=== PATIENT | male | born 1945 | race Caucasian/White ===

== ENCOUNTER 2022-07-28 15:12 | Emergency (ER) | payer MEDICARE, OTHER ==
[~2022-07-28] VITALS: Ht 182.9 cm; Wt 79.8 kg
--- NOTE | 2022-07-28 15:15 | NUR ---
BIB [facility] FROM A CLINIC DUE TO ABNORMAL EKG, H/O AFIB, DENIES ANY CP OR SOB. PLACED IN BED, AAOX4, UNABLE TO HEAR CLEARLY, BREATHING EVEN AND UNLABORED SATURATING AT 97%RA.
--- NOTE | 2022-07-28 15:59 | NUR ---
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
[2022-07-28 16:33] LABS: CALCIUM, SERUM 10.3 mg/dL (8.5-10.1); CARBON DIOXIDE 28 mmol/L (21-32); CHLORIDE 107 mmol/L (98-107); CREATININE 1.4 mg/dL (0.6-1.3); GLUCOSE 98 mg/dL (74-106); POTASSIUM 5.4 mmol/L (3.5-5.1); SODIUM SERUM 141 mmol/L (136-145); UREA NITROGEN, BLOOD 26 mg/dL (7-18)
[2022-07-28 17:11] LABS: BASOPHILS % (AUTO) 0.6 % (0.0-2.0); EOSINOPHILS % (AUTO) 2.1 % (0.0-6.0); HEMATOCRIT 49 % (39-51); HEMOGLOBIN 15.6 g/dL (13.5-17.5); LYMPHOCYTES # (AUTO) 1.9 K/uL (0.8-4.8); LYMPHOCYTES % (AUTO) 27.8 % (20.0-44.0); MEAN CORPUSCULAR HGB CONC 32 g/dl (31.0-36.0); MEAN CORPUSCULAR VOLUME 95 fL (80-96); MONOCYTES # (AUTO) 0.6 K/uL (0.1-1.30); MONOCYTES % (AUTO) 8.5 % (2.0-12.0); NEUTROPHILS # (AUTO) 4.1 K/uL (1.8-8.9); PLATELET COUNT (AUTO) 127 K/uL (150-450); WHITE BLOOD COUNT (AUTO) 6.8 K/uL (4.3-11.0)
--- NOTE | 2022-07-28 19:15 | NUR ---
Patient discharged to home in stable condition. Written and verbal after care instructions given. Patient AND verbalizes understanding of instruction.
--- NOTE | 2022-07-28 20:06 | NUR ---
CALLED [facility] [phone] OUTSOLE LEVELER #[phone] WILL REACH OUT TO PT
[2022-07-28 20:56] VITALS: BP 130/85
== END 2022-07-28 19:15 | disposition home or self-care (01) ==
LOC: ER 15:14
DX: I48.92 Unspecified atrial flutter (principal); R00.2 Palpitations; I10 Essential (primary) hypertension
CPT/HCPCS: 36415; 71045-TC; 80048-TC; 84484-TC; 85025-TC

== ENCOUNTER 2022-11-06 17:56 | Emergency (ER) | payer MEDICARE, OTHER ==
[~2022-11-06] VITALS: Ht 177.8 cm; Wt 88.5 kg
--- NOTE | 2022-11-06 19:00 | NUR ---
BIB [facility] C/O RIGHT SHOULDER AND ARM PAIN X 1 WEEK. PT DENIES ANY TRAUMA TO AREA.
[2022-11-06] MEDS ORDERED: KETOROLAC TROMETHAMINE INJ 30 MG/ML VIAL ONE (19:58)
[2022-11-06] MEDS ORDERED: HYDROCODONE/APAP 5/325MG TABLET PO ONE (20:00)
[2022-11-06] MEDS ORDERED: KETOROLAC TROMETHAMINE INJ 60 MG/2 ML VIAL IM ONE (20:00)
[2022-11-06] MEDS ORDERED: HYDROCODONE/APAP 5/325MG TABLET ONE (20:03)
[2022-11-06] MEDS ORDERED: HYDR-4303 PO (21:02)
[2022-11-06] MEDS ORDERED: AMOX-430 PO (21:02)
--- NOTE | 2022-11-06 21:07 | NUR ---
Patient discharged to home in stable condition. Written and verbal after care instructions given. Patient AND COUSIN verbalizes understanding of instruction.
[2022-11-06 21:19] VITALS: BP 115/68; TEMP 98.4
== END 2022-11-06 21:07 | disposition home or self-care (01) ==
LOC: ER 18:20
DX: M25.511 Pain in right shoulder (principal); R59.1 Generalized enlarged lymph nodes; K04.7 Periapical abscess without sinus; I10 Essential (primary) hypertension; I48.91 Unspecified atrial fibrillation; Z60.2 Problems related to living alone
CPT/HCPCS: 73030-TC; J1885

== ENCOUNTER 2022-12-13 14:53 | Inpatient (IN) | payer MEDICARE, OTHER ==
[~2022-12-13] VITALS: Ht 177.8 cm; Wt 91.2 kg
[~2022-12-13 14:53] MED LIST: AMOX-430 PO; HYDR-4303 PO
[2022-12-13 15:21] VITALS: O2SAT 97
[2022-12-13] MEDS ORDERED: IV NS 0.9% 500 ML BAG IV ONE (15:30)
[2022-12-13 15:39] LABS: BASOPHILS % (AUTO) 0.7 % (0.0-2.0); EOSINOPHILS # (AUTO) 0.1 K/uL (0.0-0.7); EOSINOPHILS % (AUTO) 1.8 % (0.0-6.0); HEMATOCRIT 43 % (39-51); HEMOGLOBIN 14.3 g/dL (13.5-17.5); LYMPHOCYTES # (AUTO) 1.7 K/uL (0.8-4.8); LYMPHOCYTES % (AUTO) 31.7 % (20.0-44.0); MEAN CORPUSCULAR HEMOGLOBIN 31 PG (26.0-33.0); MEAN CORPUSCULAR HGB CONC 33 g/dl (31.0-36.0); MEAN CORPUSCULAR VOLUME 93 fL (80-96); MONOCYTES # (AUTO) 0.5 K/uL (0.1-1.30); NEUTROPHILS % (AUTO) 56.8 % (43.0-81.0); PLATELET COUNT (AUTO) 118 K/uL (150-450); RED BLOOD CELL COUNT(AUTO) 4.65 MIL/uL (4.5-6.0); RED CELL DISTRIBUTION WIDTH 15.7 % (11.5-15.0); WHITE BLOOD COUNT (AUTO) 5.3 K/uL (4.3-11.0)
[2022-12-13 15:58] LABS: CALCIUM, SERUM 9.2 mg/dL (8.5-10.1); CARBON DIOXIDE 23 mmol/L (21-32); CHLORIDE 108 mmol/L (98-107); CREATININE 1.3 mg/dL (0.6-1.3); GLUCOSE 124 mg/dL (74-106); POTASSIUM 4.5 mmol/L (3.5-5.1); SODIUM SERUM 140 mmol/L (136-145); UREA NITROGEN, BLOOD 24 mg/dL (7-18)
[2022-12-13 16:04] LABS: ALANINE AMINOTRANSFERASE 27 U/L (12-78); ALBUMIN 3.4 g/dL (3.4-5.0); ALKALINE PHOSPHATASE 99 U/L (46-116); ASPARTATE AMINOTRANSFERASE 29 U/L (15-37); BILIRUBIN,DIRECT 0.4 mg/dL (0.0-0.2); BILIRUBIN,TOTAL 1.3 mg/dL (0.2-1.0); TOTAL PROTEIN, SERUM 7.2 g/dL (6.4-8.2)
[2022-12-13 16:08] LABS: INR 1.32 (0.91-1.10); PROTHROMBIN TIME 13.6 SECS (9.2-11.1)
[2022-12-13 16:10] LABS: LACTIC ACID 1.5 mmol/L (0.4-2.0)
[2022-12-13] MEDS ORDERED: PRIM50TA27 PO (16:37)
[2022-12-13] MEDS ORDERED: LEVO50TA8 PO (16:37)
[2022-12-13] MEDS ORDERED: CARV12.52 PO (16:37)
[2022-12-13] MEDS ORDERED: APIX5TAB PO (16:37)
[2022-12-13 16:46] LABS: APPEARANCE,URINE BLOODY (CLEAR)
[2022-12-13 16:57] LABS: COLOR,URINE RED (YELLOW)
[2022-12-13 16:58] LABS: BACTERIA,URINE RARE /HPF (None Seen); RBC,URINE TOO NUMEROUS TO COUN /HPF (0-2); SQUAMOUS EPITHELIAL CELL,UR 0-2 /HPF (None Seen)
[2022-12-13] MEDS ORDERED: ONDANSETRON HCL/PF 4 MG/2 ML VIAL IVP PRN (17:00)
[2022-12-13] MEDS ORDERED: CARVEDILOL 12.5 MG TABLET PO SCH (17:00)
[2022-12-13] MEDS ORDERED: ACETAMINOPHEN 325 MG TABLET PO PRN (17:00)
[2022-12-13] MEDS ORDERED: Z GUARD REMEDY 4 OZ OINT TP PRN (17:00)
[2022-12-13] MEDS ORDERED: ZOLPIDEM TARTRATE 5 MG TABLET PO PRN (17:00)
[2022-12-13] MEDS ORDERED: CEFTRIAXONE 1GM BAG (ER ONLY) 50 ML IV ONE (17:30)
[2022-12-13] MEDS: IV 1/2NS 1000 ML 1,000 ML IV PRN (17:41)
[2022-12-13] MEDS: APIXABAN 5 MG TABLET PO SCH (18:23)
[2022-12-13] MEDS ORDERED: CEFTRIAXONE 1 G in IV D5W 50 ML IV SCH (18:30)
[2022-12-14 06:09] LABS: BASOPHILS % (AUTO) 0.4 % (0.0-2.0); EOSINOPHILS # (AUTO) 0.1 K/uL (0.0-0.7); EOSINOPHILS % (AUTO) 1.7 % (0.0-6.0); HEMATOCRIT 43 % (39-51); HEMOGLOBIN 14.2 g/dL (13.5-17.5); LYMPHOCYTES # (AUTO) 1.3 K/uL (0.8-4.8); LYMPHOCYTES % (AUTO) 25.5 % (20.0-44.0); MEAN CORPUSCULAR HEMOGLOBIN 31 PG (26.0-33.0); MEAN CORPUSCULAR HGB CONC 33 g/dl (31.0-36.0); MEAN CORPUSCULAR VOLUME 94 fL (80-96); MONOCYTES # (AUTO) 0.3 K/uL (0.1-1.30); MONOCYTES % (AUTO) 6.9 % (2.0-12.0); NEUTROPHILS # (AUTO) 3.2 K/uL (1.8-8.9); NEUTROPHILS % (AUTO) 65.5 % (43.0-81.0); PLATELET COUNT (AUTO) 108 K/uL (150-450); RED BLOOD CELL COUNT(AUTO) 4.63 MIL/uL (4.5-6.0); RED CELL DISTRIBUTION WIDTH 15.3 % (11.5-15.0); WHITE BLOOD COUNT (AUTO) 4.9 K/uL (4.3-11.0)
[2022-12-14 06:24] LABS: ALBUMIN 3.1 g/dL (3.4-5.0); BILIRUBIN,TOTAL 1.3 mg/dL (0.2-1.0); CREATININE 1.2 mg/dL (0.6-1.3); MAGNESIUM 2.1 mg/dL (1.8-2.4); PHOSPHORUS 3.2 mg/dL (2.5-4.9); POTASSIUM 4.2 mmol/L (3.5-5.1); TOTAL PROTEIN, SERUM 6.6 g/dL (6.4-8.2)
[2022-12-14 06:37] LABS: CALCIUM, SERUM 8.9 mg/dL (8.5-10.1)
[2022-12-14] MEDS: IV 1/2NS 1000 ML 1,000 ML IV PRN (07:23)
[2022-12-14] MEDS ORDERED: LEVOTHYROXINE SODIUM 50 MCG TABLET PO SCH (07:30)
[2022-12-14 08:00] VITALS: BP 151/88; TEMP 97.6; O2SAT 97
[2022-12-14 08:26] LABS: THYROID STIMULATING HORMONE 5.003 uIU/mL (0.358-3.74)
[2022-12-14] MEDS: APIXABAN 5 MG TABLET PO SCH (08:30)
[2022-12-14 12:00] VITALS: BP 119/74; TEMP 98.1; O2SAT 99
[2022-12-15] MEDS ORDERED: HYDR453.3 TP (11:10)
[2022-12-15] MEDS ORDERED: PRED20TA PO (11:10)
[2022-12-15] MEDS ORDERED: DIPH25CA83 PO (11:10)
[2022-12-15] MEDS ORDERED: FAMO-131 PO (11:10)
== END 2022-12-14 13:26 | disposition home health service (06) | DRG 308 ==
LOC: ER 14:56 → TELE 16:55
PROVIDERS: ADMIT Internal Medicine; ATTEND Nurse Practitioner Acute Care
DX: I48.91 Unspecified atrial fibrillation (principal); I50.33 Acute on chronic diastolic (congestive) heart failure; D68.69 Other thrombophilia; N39.0 Urinary tract infection, site not specified; I31.39 Other pericardial effusion (noninflammatory); J90 Pleural effusion, not elsewhere classified; R31.0 Gross hematuria; G20 Parkinson's disease; I27.20 Pulmonary hypertension, unspecified; Z79.01 Long term (current) use of anticoagulants; I11.0 Hypertensive heart disease with heart failure; Z86.73 Personal history of transient ischemic attack (TIA), and cerebral infarction without residual deficits; H91.90 Unspecified hearing loss, unspecified ear; I08.0 Rheumatic disorders of both mitral and aortic valves
CPT/HCPCS: 36415; 70450-TC; 71045-TC; 76770-TC; 80048-TC; 80053-TC; 80061-TC; 80076-TC; 81001; 82962-TC; 83605-TC; 83735-TC; 84100-TC; 84439-TC; 84443-TC; 84484-TC; 85025-TC; 85730-TC; 87040-TC; 87081-TC; 87086-TC; 93307-TC; A4223; G0378; J0696; J3490; J7040; J7060

== ENCOUNTER 2022-12-15 10:29 | Emergency (ER) | payer MEDICARE, OTHER ==
[~2022-12-15] VITALS: Ht 177.8 cm; Wt 90.7 kg
[2022-12-15 10:29] VITALS: BP 113/63; TEMP 97.5; O2SAT 99
[~2022-12-15 10:29] MED LIST changes: -AMOX-430 PO; +APIX5TAB PO; -HYDR-4303 PO; +LEVO50TA8 PO; +PRIM50TA27 PO
[2022-12-15] MEDS ORDERED: FAMO-131 PO (11:10)
[2022-12-15] MEDS ORDERED: PRED20TA PO (11:10)
[2022-12-15] MEDS ORDERED: HYDR453.3 TP (11:10)
[2022-12-15] MEDS ORDERED: DIPH25CA83 PO (11:10)
[2022-12-15] MEDS ORDERED: diphenhydrAMINE HCL ELIX 25 MG/10 ML UDC ONE (11:13)
[2022-12-15] MEDS ORDERED: predniSONE 20 MG TABLET ONE (11:14)
[2022-12-15] MEDS ORDERED: FAMOTIDINE (20 MG) 20 MG TABLET ONE (11:14)
[2022-12-15] MEDS ORDERED: diphenhydrAMINE HCL ELIX 25 MG/10 ML UDC PO ONE (11:30)
[2022-12-15] MEDS ORDERED: FAMOTIDINE (20 MG) 20 MG TABLET PO ONE (11:30)
[2022-12-15] MEDS ORDERED: predniSONE 20 MG TABLET PO ONE (11:30)
== END 2022-12-15 11:32 | disposition home or self-care (01) ==
LOC: ER 10:35
DX: T78.40XA Allergy, unspecified, initial encounter (principal); L29.9 Pruritus, unspecified; I11.0 Hypertensive heart disease with heart failure; I50.9 Heart failure, unspecified; I48.91 Unspecified atrial fibrillation; Z60.2 Problems related to living alone; X58.XXXA Exposure to other specified factors, initial encounter
CPT/HCPCS: 99284; Q0163; J7512

== ENCOUNTER 2023-01-05 12:26 | Emergency (ER) | payer MEDICARE, OTHER ==
[~2023-01-05] VITALS: Ht 177.8 cm; Wt 90.7 kg
[~2023-01-05 12:26] MED LIST changes: +DIPH25CA83 PO; +FAMO-131 PO; +HYDR453.3 TP; +PRED20TA PO
[2023-01-05 13:03] LABS: APPEARANCE,URINE SLIGHTLY CLOUDY (CLEAR); BILIRUBIN,URINE NEGATIVE (NEGATIVE); BLOOD, URINE 3+ Ery/uL (NEGATIVE); COLOR,URINE DARK YELLOW (YELLOW); KETONES,URINE NEGATIVE (NEGATIVE); LEUKOCYTE ESTERASE ,URINE NEGATIVE (NEGATIVE); NITRITE, URINE NEGATIVE (NEGATIVE); PH,URINE 5.5 (5.0-8.0); PROTEIN,URINE 2+ mg/dl (NEGATIVE); UGLUCOSE NEGATIVE (NEGATIVE); UROBILINOGEN,URINE 0.2 EU/dL (0.2)
[2023-01-05 14:45] LABS: ADD URINE CULTURE NO; BACTERIA,URINE None seen /HPF (None Seen); MUCUS,URINE Moderate /LPF (None Seen); RBC,URINE 21-50 /HPF (0-2); SQUAMOUS EPITHELIAL CELL,UR None Seen /HPF (None Seen); WBC,URINE NONE SEEN /HPF (0-3)
[2023-01-05] MEDS ORDERED: PHEN-704 PO (15:21)
[2023-01-05 15:42] VITALS: BP 131/78; TEMP 97.6; O2SAT 98
== END 2023-01-05 15:42 | disposition home or self-care (01) ==
LOC: ER 12:26
DX: R30.0 Dysuria (principal); R31.9 Hematuria, unspecified; I10 Essential (primary) hypertension; Z60.2 Problems related to living alone
CPT/HCPCS: 81001

== ENCOUNTER 2023-03-20 19:11 | Emergency (ER) | payer MEDICARE, OTHER ==
[~2023-03-20] VITALS: Ht 177.8 cm; Wt 86.2 kg
[~2023-03-20 19:11] MED LIST changes: +PHEN-704 PO
[2023-03-20 19:30] VITALS: BP 145/88; TEMP 98.3
[2023-03-20 20:52] VITALS: O2SAT 98
== END 2023-03-20 20:53 | disposition home or self-care (01) ==
LOC: ER 19:18
DX: U07.1 COVID-19 (principal); I10 Essential (primary) hypertension; Z60.2 Problems related to living alone

== ENCOUNTER 2023-08-15 21:03 | Inpatient (IN) | payer MEDICARE, OTHER ==
[~2023-08-15] VITALS: Ht 177.8 cm; Wt 89.8 kg
[2023-08-15 21:45] LABS: BASOPHILS # (AUTO) 0.1 K/uL (0.0-0.2); BASOPHILS % (AUTO) 2.4 % (0.0-2.0); EOSINOPHILS # (AUTO) 0.1 K/uL (0.0-0.7); EOSINOPHILS % (AUTO) 1.3 % (0.0-6.0); HEMATOCRIT 45 % (39-51); HEMOGLOBIN 14.6 g/dL (13.5-17.5); LYMPHOCYTES % (AUTO) 18.3 % (20.0-44.0); MEAN CORPUSCULAR HEMOGLOBIN 30 PG (26.0-33.0); MEAN CORPUSCULAR HGB CONC 33 g/dl (31.0-36.0); MEAN CORPUSCULAR VOLUME 94 fL (80-96); MONOCYTES # (AUTO) 0.5 K/uL (0.1-1.30); MONOCYTES % (AUTO) 9.9 % (2.0-12.0); NEUTROPHILS # (AUTO) 3.8 K/uL (1.8-8.9); NEUTROPHILS % (AUTO) 68.1 % (43.0-81.0); PLATELET COUNT (AUTO) 128 K/uL (150-450); RED BLOOD CELL COUNT(AUTO) 4.81 MIL/uL (4.5-6.0); RED CELL DISTRIBUTION WIDTH 16.2 % (11.5-15.0); WHITE BLOOD COUNT (AUTO) 5.5 K/uL (4.3-11.0)
[2023-08-15 21:55] LABS: CARBON DIOXIDE 25 mmol/L (21-32); CHLORIDE 109 mmol/L (98-107); CREATININE 1.4 mg/dL (0.6-1.3); GLUCOSE 127 mg/dL (74-106); POTASSIUM 4.5 mmol/L (3.5-5.1); SODIUM SERUM 145 mmol/L (136-145); UREA NITROGEN, BLOOD 20 mg/dL (7-18)
[2023-08-15 22:08] LABS: ALANINE AMINOTRANSFERASE 29 U/L (12-78); ALBUMIN 3.2 g/dL (3.4-5.0); ALKALINE PHOSPHATASE 113 U/L (46-116); ASPARTATE AMINOTRANSFERASE 38 U/L (15-37); BILIRUBIN,DIRECT 0.5 mg/dL (0.0-0.2); BILIRUBIN,TOTAL 1.6 mg/dL (0.2-1.0); NT-PRO BNP 3083 pg/mL (0-125); TOTAL PROTEIN, SERUM 7.1 g/dL (6.4-8.2)
[2023-08-15 22:36] LABS: INR 1.41 (0.91-1.10); PARTIAL THROMBOPLASTIN TIME 29.8 SEC (24.3-34.3); PROTHROMBIN TIME 14.6 SECS (9.2-11.1)
[2023-08-15 22:47] LABS: APPEARANCE,URINE TURBID (CLEAR); BILIRUBIN,URINE 1+ (NEGATIVE); BLOOD, URINE 3+ Ery/uL (NEGATIVE); COLOR,URINE RED (YELLOW); KETONES,URINE NEGATIVE (NEGATIVE); LEUKOCYTE ESTERASE ,URINE NEGATIVE (NEGATIVE); NITRITE, URINE NEGATIVE (NEGATIVE); PROTEIN,URINE 3+ mg/dl (NEGATIVE); UGLUCOSE TRACE mg/dL (NEGATIVE)
[2023-08-15 22:50] LABS: ADD URINE CULTURE NO; BACTERIA,URINE None seen /HPF (None Seen); RBC,URINE TOO NUMEROUS TO COUN /HPF (0-2); SQUAMOUS EPITHELIAL CELL,UR Few /HPF (None Seen)
[2023-08-15] MEDS ORDERED: FUROSEMIDE 20 MG/2 ML VIAL ONE (23:32)
[2023-08-15] MEDS: FUROSEMIDE 20 MG/2 ML VIAL IV ONE (23:32)
[2023-08-16] VITALS (7 sets, daily range): BP systolic 122–137; BP diastolic 76–97; TEMP 97.5–98.1; O2SAT 96–100
[2023-08-16] MEDS ORDERED: MAG HYDROX/AL HYDROX/SIMETH 30 ML UDC PO PRN
[2023-08-16] MEDS ORDERED: MAGNESIUM HYDROXIDE 30 ML UDC PO PRN
[2023-08-16] MEDS ORDERED: ZOLPIDEM TARTRATE 5 MG TABLET PO PRN
[2023-08-16] MEDS ORDERED: Z GUARD REMEDY 4 OZ OINT TP PRN
[2023-08-16] MEDS ORDERED: ONDANSETRON HCL/PF 4 MG/2 ML VIAL IVP PRN
[2023-08-16] MEDS ORDERED: ACETAMINOPHEN 325 MG TABLET PO PRN
[2023-08-16] MEDS ORDERED: diphenhydrAMINE HCL 25 MG CAPSULE PO PRN (01:00)
[2023-08-16] MEDS ORDERED: HYDROCORTISONE 2.5% CREAM 28.4 GM TUBE TP SCH (01:00)
[2023-08-16] MEDS ORDERED: PHENAZOPYRIDINE HCL 200 MG TABLET PO PRN (07:00)
[2023-08-16 07:15] LABS: BASOPHILS % (AUTO) 0.8 % (0.0-2.0); EOSINOPHILS # (AUTO) 0.1 K/uL (0.0-0.7); HEMATOCRIT 47 % (39-51); LYMPHOCYTES # (AUTO) 1.8 K/uL (0.8-4.8); LYMPHOCYTES % (AUTO) 28.4 % (20.0-44.0); MEAN CORPUSCULAR HEMOGLOBIN 30 PG (26.0-33.0); MEAN CORPUSCULAR HGB CONC 32 g/dl (31.0-36.0); MEAN CORPUSCULAR VOLUME 95 fL (80-96); MONOCYTES # (AUTO) 0.6 K/uL (0.1-1.30); NEUTROPHILS # (AUTO) 3.7 K/uL (1.8-8.9); NEUTROPHILS % (AUTO) 59.8 % (43.0-81.0); PLATELET COUNT (AUTO) 124 K/uL (150-450); RED BLOOD CELL COUNT(AUTO) 4.96 MIL/uL (4.5-6.0); RED CELL DISTRIBUTION WIDTH 16.2 % (11.5-15.0); WHITE BLOOD COUNT (AUTO) 6.2 K/uL (4.3-11.0)
[2023-08-16] MEDS ORDERED: METO25TA4 PO (07:38)
[2023-08-16 08:13] LABS: THYROID STIMULATING HORMONE 11.38 uIU/mL (0.358-3.74)
[2023-08-16 08:24] LABS: ALBUMIN 3.3 g/dL (3.4-5.0); BILIRUBIN,DIRECT 0.5 mg/dL (0.0-0.2); BILIRUBIN,TOTAL 1.5 mg/dL (0.2-1.0); CREATININE 1.3 mg/dL (0.6-1.3); PHOSPHORUS 3.6 mg/dL (2.5-4.9); POTASSIUM 4.8 mmol/L (3.5-5.1); TOTAL PROTEIN, SERUM 7.3 g/dL (6.4-8.2)
[2023-08-16 08:37] LABS: CALCIUM, SERUM 9.5 mg/dL (8.5-10.1)
[2023-08-16] MEDS: predniSONE 20 MG TABLET PO SCH (09:00)
[2023-08-16] MEDS ORDERED: HEPARIN SODIUM, PORCINE 5000 UNITS/1 ML VIAL SQ SCH (09:00)
[2023-08-16] MEDS: LEVOTHYROXINE SODIUM 50 MCG TABLET PO SCH (09:31)
[2023-08-16] MEDS: PANTOPRAZOLE 40 MG TABLET.DR PO SCH (09:31)
[2023-08-16] MEDS: APIXABAN 5 MG TABLET PO SCH (09:34)
[2023-08-16] MEDS: FUROSEMIDE 40 MG/4 ML VIAL IV SCH (09:55)
[2023-08-16] MEDS: COLCHICINE 0.6 MG TABLET PO SCH (10:30)
[2023-08-16] MEDS: METOPROLOL SUCCINATE 25 MG TAB.SR.24H PO SCH (16:27)
[2023-08-17 06:45] LABS: BASOPHILS % (AUTO) 0.4 % (0.0-2.0); EOSINOPHILS # (AUTO) 0.1 K/uL (0.0-0.7); EOSINOPHILS % (AUTO) 1.9 % (0.0-6.0); HEMATOCRIT 46 % (39-51); HEMOGLOBIN 14.9 g/dL (13.5-17.5); LYMPHOCYTES # (AUTO) 1.6 K/uL (0.8-4.8); LYMPHOCYTES % (AUTO) 25.6 % (20.0-44.0); MEAN CORPUSCULAR HEMOGLOBIN 30 PG (26.0-33.0); MEAN CORPUSCULAR HGB CONC 33 g/dl (31.0-36.0); MEAN CORPUSCULAR VOLUME 92 fL (80-96); MONOCYTES # (AUTO) 0.7 K/uL (0.1-1.30); MONOCYTES % (AUTO) 11.8 % (2.0-12.0); NEUTROPHILS # (AUTO) 3.7 K/uL (1.8-8.9); NEUTROPHILS % (AUTO) 60.3 % (43.0-81.0); PLATELET COUNT (AUTO) 124 K/uL (150-450); RED BLOOD CELL COUNT(AUTO) 4.95 MIL/uL (4.5-6.0); RED CELL DISTRIBUTION WIDTH 15.9 % (11.5-15.0); WHITE BLOOD COUNT (AUTO) 6.1 K/uL (4.3-11.0)
[2023-08-17 07:02] LABS: ALBUMIN 2.9 g/dL (3.4-5.0); BILIRUBIN,TOTAL 1.7 mg/dL (0.2-1.0); CALCIUM, SERUM 9.1 mg/dL (8.5-10.1); CREATININE 1.2 mg/dL (0.6-1.3); MAGNESIUM 1.9 mg/dL (1.8-2.4); PHOSPHORUS 3.6 mg/dL (2.5-4.9); POTASSIUM 3.6 mmol/L (3.5-5.1); TOTAL PROTEIN, SERUM 6.6 g/dL (6.4-8.2)
[2023-08-17 08:47] VITALS: BP 141/84; TEMP 97.9; O2SAT 98
[2023-08-17] MEDS: FUROSEMIDE 40 MG/4 ML VIAL IV SCH (09:00)
[2023-08-17] MEDS: POTASSIUM CHLORIDE 20 MEQ TAB.PRT.SR PO SCH (09:21)
[2023-08-17] MEDS ORDERED: FURO-144 PO (10:16)
[2023-08-17] MEDS ORDERED: Colchicine PO (10:16)
[2023-08-17 16:53] VITALS: BP 115/76; TEMP 97.8; O2SAT 97
[2023-08-18 09:08] LABS: *SPE A/G RATIO 0.9 (0.7-1.7); *SPE ALBUMIN 2.8 g/dL (2.9-4.4); *SPE ALPHA-1-GLOBULIN 0.2 g/dL (0.0-0.4); *SPE ALPHA-2-GLOBULIN 0.5 g/dL (0.4-1.0); *SPE GLOBULIN, TOTAL 3.1 g/dL (2.2-3.9); *SPE M-SPIKE Not Observed g/dL (Not Observed); *SPE PROTEIN TOTAL 5.9 g/dL (6.0-8.5); *SPEGAMMA GLOBULIN 1.3 g/dL (0.4-1.8); PTH, INTACT 50 pg/mL (15-65)
== END 2023-08-17 18:44 | disposition home health service (06) | DRG 291 ==
LOC: ER 21:04 → TELE 08-16 00:21 → MED 08-16 13:30
PROVIDERS: ADMIT Student in an Organized Health Care Education/Training Program
DX: I11.0 Hypertensive heart disease with heart failure (principal); I50.33 Acute on chronic diastolic (congestive) heart failure; N17.0 Acute kidney failure with tubular necrosis; J98.11 Atelectasis; E44.1 Mild protein-calorie malnutrition; E87.0 Hyperosmolality and hypernatremia; D68.69 Other thrombophilia; J90 Pleural effusion, not elsewhere classified; I31.39 Other pericardial effusion (noninflammatory); D69.6 Thrombocytopenia, unspecified; E03.9 Hypothyroidism, unspecified; I48.91 Unspecified atrial fibrillation; Z79.01 Long term (current) use of anticoagulants; M89.8X9 Other specified disorders of bone, unspecified site; R74.01 Elevation of levels of liver transaminase levels; R31.9 Hematuria, unspecified; I27.20 Pulmonary hypertension, unspecified; I34.0 Nonrheumatic mitral (valve) insufficiency; Z86.73 Personal history of transient ischemic attack (TIA), and cerebral infarction without residual deficits; Z68.28 Body mass index [BMI] 28.0-28.9, adult; H91.90 Unspecified hearing loss, unspecified ear; G20.A1 Parkinson's disease without dyskinesia, without mention of fluctuations; Z96.642 Presence of left artificial hip joint
CPT/HCPCS: 36415; 71045-TC; 71250-TC; 76770-TC; 80048-TC; 80053-TC; 80076-TC; 81001; 82550-TC; 83735-TC; 83880; 83970; 84100-TC; 84155; 84165; 84439-TC; 84443-TC; 84484-TC; 85025-TC; 85730-TC; 93307-TC; 94799-TC; G0378; J1940

== ENCOUNTER 2024-10-29 09:17 | Inpatient (IN) | payer MEDICARE, OTHER ==
[~2024-10-29] VITALS: Ht 177.8 cm; Wt 64.0 kg
[~2024-10-29 09:17] MED LIST changes: +Colchicine PO; -DIPH25CA83 PO; -FAMO-131 PO; +FURO-144 PO; -HYDR453.3 TP; -LEVO50TA8 PO; +METO25TA4 PO; -PHEN-704 PO; -PRED20TA PO; -PRIM50TA27 PO
[2024-10-29 09:57] LABS: BASOPHILS % (AUTO) 0.9 % (0.0-2.0); EOSINOPHILS % (AUTO) 0.3 % (0.0-6.0); HEMATOCRIT 48 % (39-51); HEMOGLOBIN 15.8 g/dL (13.5-17.5); LYMPHOCYTES # (AUTO) 1.1 K/uL (0.8-4.8); LYMPHOCYTES % (AUTO) 21.2 % (20.0-44.0); MEAN CORPUSCULAR HEMOGLOBIN 31 PG (26.0-33.0); MEAN CORPUSCULAR HGB CONC 33 g/dl (31.0-36.0); MEAN CORPUSCULAR VOLUME 96 fL (80-96); MONOCYTES # (AUTO) 0.4 K/uL (0.1-1.30); MONOCYTES % (AUTO) 8.2 % (2.0-12.0); NEUTROPHILS # (AUTO) 3.7 K/uL (1.8-8.9); NEUTROPHILS % (AUTO) 69.4 % (43.0-81.0); PLATELET COUNT (AUTO) 156 K/uL (150-450); RED BLOOD CELL COUNT(AUTO) 5.02 MIL/uL (4.5-6.0); RED CELL DISTRIBUTION WIDTH 18.2 % (11.5-15.0); WHITE BLOOD COUNT (AUTO) 5.3 K/uL (4.3-11.0)
[2024-10-29 10:06] LABS: CALCIUM, SERUM 9.9 mg/dL (8.5-10.1); CARBON DIOXIDE 28 mmol/L (21-32); CHLORIDE 102 mmol/L (98-107); GLUCOSE 112 mg/dL (74-106); POTASSIUM 4.9 mmol/L (3.5-5.1); SODIUM SERUM 141 mmol/L (136-145); UREA NITROGEN, BLOOD 40 mg/dL (7-18)
[2024-10-29 10:15] LABS: INR 1.62 (0.91-1.10); PARTIAL THROMBOPLASTIN TIME 27.5 SEC (24.3-34.3); PROTHROMBIN TIME 16.6 SECS (9.2-11.1)
[2024-10-29 10:16] LABS: ALANINE AMINOTRANSFERASE 37 U/L (12-78); ALBUMIN 3.6 g/dL (3.4-5.0); ALKALINE PHOSPHATASE 119 U/L (46-116); ASPARTATE AMINOTRANSFERASE 41 U/L (15-37); BILIRUBIN,DIRECT 2.7 mg/dL (0.0-0.2); BILIRUBIN,TOTAL 4.5 mg/dL (0.2-1.0); TOTAL PROTEIN, SERUM 7.7 g/dL (6.4-8.2)
[2024-10-29 10:29] LABS: LACTIC ACID 4.8 mmol/L (0.4-2.0)
[2024-10-29] MEDS ORDERED: ACETAMINOPHEN 325 MG TABLET PO PRN (10:30)
[2024-10-29] MEDS ORDERED: ZOLPIDEM TARTRATE 5 MG TABLET PO PRN (10:30)
[2024-10-29] MEDS ORDERED: Z GUARD REMEDY 4 OZ OINT TP PRN (10:30)
[2024-10-29] MEDS ORDERED: MAGNESIUM HYDROXIDE 30 ML UDC PO PRN (10:30)
[2024-10-29] MEDS ORDERED: MAG HYDROX/AL HYDROX/SIMETH 30 ML UDC PO PRN (10:30)
[2024-10-29] MEDS ORDERED: CEFTRIAXONE 1GM BAG (ER ONLY) 1 GM/50 ML PIGGYBACK IV ONE (11:00)
[2024-10-29] MEDS: CEFTRIAXONE 1 G in IV D5W 50 ML IV ONE (11:05)
[2024-10-29 11:13] LABS: APPEARANCE,URINE CLEAR (CLEAR); BILIRUBIN,URINE 1+ (NEGATIVE); BLOOD, URINE 1+ Ery/uL (NEGATIVE); COLOR,URINE DARK YELLOW (YELLOW); KETONES,URINE NEGATIVE (NEGATIVE); LEUKOCYTE ESTERASE ,URINE NEGATIVE (NEGATIVE); NITRITE, URINE POSITIVE (NEGATIVE); PROTEIN,URINE 2+ mg/dl (NEGATIVE); UGLUCOSE TRACE mg/dL (NEGATIVE)
[2024-10-29] MEDS ORDERED: CARV6.252 PO (11:26)
[2024-10-29 11:33] LABS: ADD URINE CULTURE YES; BACTERIA,URINE Moderate /HPF (None Seen); MUCUS,URINE Moderate /LPF (None Seen); SQUAMOUS EPITHELIAL CELL,UR 0-2 /HPF (None Seen); WBC,URINE 0-2 /HPF (0-3)
[2024-10-29] MEDS: ONDANSETRON HCL/PF 4 MG/2 ML VIAL IVP PRN (15:54)
[2024-10-29 16:00] VITALS: BP_SYST 115; BP_SYST 120; BP_DIAS 72; BP_DIAS 85; TEMP 97.5; TEMP 98.1; O2SAT 96; O2SAT 98
[2024-10-29] MEDS: PANTOPRAZOLE 40 MG TABLET.DR PO SCH (18:59)
[2024-10-29 20:00] VITALS: BP 109/82; TEMP 97.3; O2SAT 98
[2024-10-29] MEDS: CARVEDILOL 6.25 MG TABLET PO ONE (20:00)
[2024-10-29] MEDS: HEPARIN SODIUM, PORCINE 5000 UNITS/1 ML VIAL SQ SCH (20:51)
[2024-10-30] VITALS: BP 99/69; TEMP 97.2; O2SAT 97
[2024-10-30 04:00] VITALS: BP 102/62; TEMP 97.5; O2SAT 98
[2024-10-30 06:39] LABS: BASOPHILS % (AUTO) 0.9 % (0.0-2.0); EOSINOPHILS % (AUTO) 0.9 % (0.0-6.0); HEMATOCRIT 47 % (39-51); HEMOGLOBIN 14.7 g/dL (13.5-17.5); LYMPHOCYTES # (AUTO) 1.3 K/uL (0.8-4.8); LYMPHOCYTES % (AUTO) 27.6 % (20.0-44.0); MEAN CORPUSCULAR HEMOGLOBIN 31 PG (26.0-33.0); MEAN CORPUSCULAR HGB CONC 31 g/dl (31.0-36.0); MEAN CORPUSCULAR VOLUME 99 fL (80-96); MONOCYTES # (AUTO) 0.4 K/uL (0.1-1.30); MONOCYTES % (AUTO) 9.2 % (2.0-12.0); NEUTROPHILS # (AUTO) 2.8 K/uL (1.8-8.9); NEUTROPHILS % (AUTO) 61.4 % (43.0-81.0); PLATELET COUNT (AUTO) 122 K/uL (150-450); RED BLOOD CELL COUNT(AUTO) 4.76 MIL/uL (4.5-6.0); RED CELL DISTRIBUTION WIDTH 18.1 % (11.5-15.0); WHITE BLOOD COUNT (AUTO) 4.6 K/uL (4.3-11.0)
[2024-10-30 07:30] VITALS: BP 99/68; TEMP 97.3; O2SAT 98
[2024-10-30] MEDS: COLCHICINE 0.6 MG TABLET PO SCH (08:19)
[2024-10-30] MEDS: METOPROLOL SUCCINATE 25 MG TAB.SR.24H PO SCH (08:19)
[2024-10-30] MEDS: CARVEDILOL 6.25 MG TABLET PO SCH (08:19)
[2024-10-30] MEDS: FUROSEMIDE 100 MG/10 ML VIAL IV SCH (08:30)
[2024-10-30 08:58] LABS: CALCIUM, SERUM 9.6 mg/dL (8.5-10.1); CREATININE 2.2 mg/dL (0.6-1.3); MAGNESIUM 2.6 mg/dL (1.8-2.4); PHOSPHORUS 4.1 mg/dL (2.5-4.9); POTASSIUM 4.5 mmol/L (3.5-5.1)
[2024-10-30] MEDS: ENOXAPARIN SODIUM 60 MG/0.6 ML DISP.SYRIN SQ SCH (12:11)
[2024-10-30] MEDS: CEFTRIAXONE 1 G in IV D5W 50 ML IV SCH (12:11)
[2024-10-30 16:00] VITALS: BP_SYST 114; BP_SYST 138; BP_DIAS 69; BP_DIAS 75; TEMP 97.9; TEMP 98.1; O2SAT 100; O2SAT 96
[2024-10-30 20:00] VITALS: BP 98/69; TEMP 96.9; O2SAT 100
[2024-10-31] VITALS: BP 114/79; TEMP 97.9; O2SAT 98
[2024-10-31] MEDS ORDERED: VANCOMYCIN 1 GM /D5W 250 ML PB IV ONE (00:44)
[2024-10-31] MEDS: VANCOMYCIN 1 GM in IV D5W 250ml IV ONE (00:46)
[2024-10-31 04:00] VITALS: BP 110/74; TEMP 97.5; O2SAT 94
[2024-10-31 07:14] LABS: BASOPHILS # (AUTO) 0.1 K/uL (0.0-0.2); BASOPHILS % (AUTO) 1.1 % (0.0-2.0); EOSINOPHILS % (AUTO) 0.6 % (0.0-6.0); HEMATOCRIT 48 % (39-51); HEMOGLOBIN 15.4 g/dL (13.5-17.5); LYMPHOCYTES # (AUTO) 1.3 K/uL (0.8-4.8); LYMPHOCYTES % (AUTO) 25.3 % (20.0-44.0); MEAN CORPUSCULAR HEMOGLOBIN 32 PG (26.0-33.0); MEAN CORPUSCULAR HGB CONC 32 g/dl (31.0-36.0); MEAN CORPUSCULAR VOLUME 99 fL (80-96); MONOCYTES # (AUTO) 0.3 K/uL (0.1-1.30); NEUTROPHILS # (AUTO) 3.5 K/uL (1.8-8.9); PLATELET COUNT (AUTO) 93 K/uL (150-450); RED CELL DISTRIBUTION WIDTH 18.2 % (11.5-15.0); WHITE BLOOD COUNT (AUTO) 5.2 K/uL (4.3-11.0)
[2024-10-31 07:17] LABS: ALBUMIN 3.3 g/dL (3.4-5.0); CALCIUM, SERUM 9.8 mg/dL (8.5-10.1); CREATININE 2.3 mg/dL (0.6-1.3); MAGNESIUM 2.6 mg/dL (1.8-2.4); PHOSPHORUS 4.4 mg/dL (2.5-4.9); POTASSIUM 4.1 mmol/L (3.5-5.1); TOTAL PROTEIN, SERUM 7.1 g/dL (6.4-8.2)
[2024-10-31 07:30] VITALS: BP 109/72; TEMP 97.3; O2SAT 97
[2024-10-31] MEDS: PANTOPRAZOLE 40 MG VIAL IV SCH (08:46)
[2024-10-31] MEDS: predniSONE 20 MG TABLET PO SCH (08:59)
[2024-10-31 10:02] LABS: EOSINOPHILS % (MANUAL) 1 % (0-4); LYMPHOCYTES % (MANUAL) 27 % (16-48); MONOCYTES % (MANUAL) 2 % (0-11.0); NEUTROPHILS % (MANUAL) 70 (42-76); PLATELET ESTIMATE DECREASED
[2024-10-31 10:03] LABS: ANISOCYTOSIS 1+
[2024-10-31 16:14] VITALS: BP 112/79; TEMP 97.5; O2SAT 100
[2024-10-31 20:00] VITALS: BP 95/68; TEMP 97.3; O2SAT 100
[2024-10-31 20:43] VITALS: BP 95/68; TEMP 97.3; O2SAT 100
[2024-10-31] MEDS ORDERED: VANCOMYCIN 750 MG in IV D5W 250 ML IV SCH (23:00)
[2024-11-01] VITALS: BP 99/59; TEMP 97.5; O2SAT 100
[2024-11-01 04:00] VITALS: BP 99/59; TEMP 97.5; O2SAT 100
[2024-11-01 05:00] VITALS: BP 100/72; TEMP 97.6; O2SAT 99
[2024-11-01 07:09] LABS: PTH, INTACT 31 pg/mL (15-65)
[2024-11-01 07:41] LABS: BASOPHILS % (AUTO) 0.8 % (0.0-2.0); EOSINOPHILS % (AUTO) 0.8 % (0.0-6.0); HEMATOCRIT 49 % (39-51); HEMOGLOBIN 15.1 g/dL (13.5-17.5); LYMPHOCYTES # (AUTO) 1.3 K/uL (0.8-4.8); LYMPHOCYTES % (AUTO) 22.7 % (20.0-44.0); MEAN CORPUSCULAR HEMOGLOBIN 31 PG (26.0-33.0); MEAN CORPUSCULAR HGB CONC 31 g/dl (31.0-36.0); MEAN CORPUSCULAR VOLUME 98 fL (80-96); MONOCYTES # (AUTO) 0.4 K/uL (0.1-1.30); MONOCYTES % (AUTO) 7.8 % (2.0-12.0); NEUTROPHILS # (AUTO) 3.7 K/uL (1.8-8.9); NEUTROPHILS % (AUTO) 67.9 % (43.0-81.0); PLATELET COUNT (AUTO) 123 K/uL (150-450); RED BLOOD CELL COUNT(AUTO) 4.95 MIL/uL (4.5-6.0); RED CELL DISTRIBUTION WIDTH 19.4 % (11.5-15.0); WHITE BLOOD COUNT (AUTO) 5.5 K/uL (4.3-11.0)
[2024-11-01 08:00] VITALS: BP 96/58; TEMP 97.5; O2SAT 95
[2024-11-01] MEDS: PANTOPRAZOLE 40 MG/PACK PACK PO SCH (08:42)
[2024-11-01 09:27] LABS: ALBUMIN 3.2 g/dL (3.4-5.0); BILIRUBIN,TOTAL 3.1 mg/dL (0.2-1.0); CALCIUM, SERUM 9.4 mg/dL (8.5-10.1); CREATININE 2.6 mg/dL (0.6-1.3); MAGNESIUM 2.5 mg/dL (1.8-2.4); PHOSPHORUS 3.9 mg/dL (2.5-4.9); POTASSIUM 4.1 mmol/L (3.5-5.1); TOTAL PROTEIN, SERUM 6.6 g/dL (6.4-8.2)
[2024-11-01 20:00] VITALS: BP 96/61; TEMP 97.3; O2SAT 100
[2024-11-02 06:49] LABS: INR 1.46 (0.91-1.10); PROTHROMBIN TIME 15.1 SECS (9.2-11.1)
[2024-11-02 08:00] VITALS: BP 99/63; TEMP 98.1; O2SAT 97
[2024-11-02 12:41] LABS: APPEARANCE,URINE CLEAR (CLEAR); BILIRUBIN,URINE 1+ (NEGATIVE); BLOOD, URINE NEGATIVE Ery/uL (NEGATIVE); COLOR,URINE YELLOW (YELLOW); CREATININE, URINE 187.8 MG/DL (30.0-125.0); KETONES,URINE NEGATIVE (NEGATIVE); LEUKOCYTE ESTERASE ,URINE NEGATIVE (NEGATIVE); NITRITE, URINE NEGATIVE (NEGATIVE); PH,URINE 5.5 (5.0-8.0); PROTEIN,URINE 2+ mg/dl (NEGATIVE); UGLUCOSE TRACE mg/dL (NEGATIVE); URINE TOTAL PROTEIN 96.7 mg/dL (0-11.9)
[2024-11-02 13:01] LABS: ADD URINE CULTURE NO; BACTERIA,URINE Rare /HPF (None Seen); RBC,URINE 0-2 /HPF (0-2); SQUAMOUS EPITHELIAL CELL,UR 0-2 /HPF (None Seen); WBC,URINE 0-2 /HPF (0-3)
[2024-11-02 13:02] LABS: HYALINE CASTS, URINE Rare /LPF (None Seen)
[2024-11-02 15:10] LABS: *SPE A/G RATIO 0.9 (0.7-1.7); *SPE ALBUMIN 3.1 g/dL (2.9-4.4); *SPE ALPHA-1-GLOBULIN 0.2 g/dL (0.0-0.4); *SPE ALPHA-2-GLOBULIN 0.5 g/dL (0.4-1.0); *SPE BETA GLOBULIN 1.1 g/dL (0.7-1.3); *SPE GLOBULIN, TOTAL 3.4 g/dL (2.2-3.9); *SPE M-SPIKE Not Observed g/dL (Not Observed); *SPE PROTEIN TOTAL 6.5 g/dL (6.0-8.5); *SPEGAMMA GLOBULIN 1.6 g/dL (0.4-1.8)
[2024-11-02 15:59] LABS: EOSINOPHIL,URINE None Seen
[2024-11-02 16:00] VITALS: BP 129/69; TEMP 98.2; O2SAT 93
[2024-11-02] MEDS: APIXABAN 5 MG TABLET PO SCH (16:23)
[2024-11-02 16:42] LABS: PROTEIN, BODY FLUID 1.3 G/DL
[2024-11-02 16:56] LABS: APPEARANCE,SPUN,BODY FLUID CLEAR (CLEAR); TOTAL VOLUME,BODY FLUID 1600 mL
[2024-11-02 17:57] LABS: WBC, BODY FLUID 109 /cu. mm. (0-200)
[2024-11-02 18:11] LABS: MONOCYTES,BODY FLUID 5 %
[2024-11-02 20:00] VITALS: BP_SYST 106; TEMP 97.3; O2SAT 97
[2024-11-03 07:30] VITALS: BP 100/76; TEMP 98.1; O2SAT 99
[2024-11-03 12:56] LABS: BASOPHILS % (AUTO) 0.1 % (0.0-2.0); HEMATOCRIT 51 % (39-51); HEMOGLOBIN 16.1 g/dL (13.5-17.5); LYMPHOCYTES # (AUTO) 0.9 K/uL (0.8-4.8); LYMPHOCYTES % (AUTO) 13.7 % (20.0-44.0); MEAN CORPUSCULAR HEMOGLOBIN 32 PG (26.0-33.0); MEAN CORPUSCULAR HGB CONC 32 g/dl (31.0-36.0); MEAN CORPUSCULAR VOLUME 100 fL (80-96); MONOCYTES # (AUTO) 0.4 K/uL (0.1-1.30); MONOCYTES % (AUTO) 5.8 % (2.0-12.0); NEUTROPHILS # (AUTO) 5.5 K/uL (1.8-8.9); NEUTROPHILS % (AUTO) 80.4 % (43.0-81.0); PLATELET COUNT (AUTO) 83 K/uL (150-450); RED CELL DISTRIBUTION WIDTH 19.8 % (11.5-15.0); WHITE BLOOD COUNT (AUTO) 6.8 K/uL (4.3-11.0)
[2024-11-03 13:19] LABS: PHOSPHORUS 7.1 mg/dL (2.5-4.9)
[2024-11-03] MEDS ORDERED: MORPHINE SULFATE INJ 2 MG/ML DISP.SYRIN IV ONE (13:30)
[2024-11-03] MEDS: HYDROCODONE/APAP 5/325MG TABLET PO ONE (13:43)
[2024-11-03 15:17] LABS: LYMPHOCYTES % (MANUAL) 25 % (16-48); MONOCYTES % (MANUAL) 12 % (0-11.0); NEUTROPHILS % (MANUAL) 63 (42-76)
[2024-11-03 15:18] LABS: PLATELET ESTIMATE DECREASED
[2024-11-03 15:42] VITALS: BP 108/63; TEMP 97.1; O2SAT 100
[2024-11-03] MEDS: SERTRALINE HCL 25 MG TABLET PO SCH (16:08)
== END 2024-11-03 18:08 | disposition hospice, inpatient (51) | DRG 291 ==
LOC: ER 09:24 → TELE 11:31 → MED 11-01 11:43
PROVIDERS: ADMIT Nurse Practitioner Acute Care; ATTEND Nurse Practitioner Acute Care
PROC: 0W993ZZ Drainage of Right Pleural Cavity, Percutaneous Approach (ICD-10-PCS; principal; 2024-11-02)
DX: I13.0 Hypertensive heart and chronic kidney disease with heart failure and stage 1 through stage 4 chronic kidney disease, or unspecified chronic kidney disease (principal); G92.8 Other toxic encephalopathy; I50.33 Acute on chronic diastolic (congestive) heart failure; J15.9 Unspecified bacterial pneumonia; J96.01 Acute respiratory failure with hypoxia; N39.0 Urinary tract infection, site not specified; N17.9 Acute kidney failure, unspecified; I31.39 Other pericardial effusion (noninflammatory); I48.20 Chronic atrial fibrillation, unspecified; E87.20 Acidosis, unspecified; J90 Pleural effusion, not elsewhere classified; J98.11 Atelectasis; E44.0 Moderate protein-calorie malnutrition; I31.9 Disease of pericardium, unspecified; F33.2 Major depressive disorder, recurrent severe without psychotic features; N18.9 Chronic kidney disease, unspecified; I25.10 Atherosclerotic heart disease of native coronary artery without angina pectoris; I34.0 Nonrheumatic mitral (valve) insufficiency; K74.60 Unspecified cirrhosis of liver; R13.10 Dysphagia, unspecified; R62.7 Adult failure to thrive; Z66 Do not resuscitate; Z79.01 Long term (current) use of anticoagulants; Z86.73 Personal history of transient ischemic attack (TIA), and cerebral infarction without residual deficits; E03.9 Hypothyroidism, unspecified; E78.5 Hyperlipidemia, unspecified; E11.40 Type 2 diabetes mellitus with diabetic neuropathy, unspecified; E11.22 Type 2 diabetes mellitus with diabetic chronic kidney disease; E88.09 Other disorders of plasma-protein metabolism, not elsewhere classified; E80.6 Other disorders of bilirubin metabolism; R74.01 Elevation of levels of liver transaminase levels; B96.89 Other specified bacterial agents as the cause of diseases classified elsewhere; Z51.5 Encounter for palliative care; I27.20 Pulmonary hypertension, unspecified
CPT/HCPCS: 36415; 71045-TC; 71250-TC; 76700-TC; 80048-TC; 80053-TC; 80076-TC; 81001; 82550-TC; 82570-TC; 83605-TC; 83735-TC; 83880; 83970; 84100-TC; 84155; 84165; 84300-TC; 84484-TC; 85025-TC; 85610-TC; 85730-TC; 87040-TC; 87081-TC; 87086-TC; 89051-TC; 92526; 92611-TC; 93307-TC; 97110-TC; 97116-TC; 97530-TC; A4223; G0378; J0696; J1644; J1650; J1938; J2405; J2470; J3370; J3371; J7050; J7060